=== PATIENT | female | born 1955 | race Caucasian/White ===

== ENCOUNTER → 2024-12-08 10:00 | Outpatient (BNVA) | payer OTHER, SELFPAY | PROVIDERS: Visit Provider Podiatrist Foot & Ankle Surgery | DX: M79.672 Pain in left foot (principal); M20.12 Hallux valgus (acquired), left foot; M20.42 Other hammer toe(s) (acquired), left foot | CPT/HCPCS: 73630; 99203 ==

== ENCOUNTER → 2025-03-10 13:13 | Outpatient (BNVA) | payer OTHER, SELFPAY | PROVIDERS: PCP Nurse Practitioner; Visit Provider Internal Medicine | DX: I10 Essential (primary) hypertension (principal); Z01.811 Encounter for preprocedural respiratory examination; R07.9 Chest pain, unspecified; Z79.82 Long term (current) use of aspirin; Z87.891 Personal history of nicotine dependence | CPT/HCPCS: 93005; 99204 ==

== ENCOUNTER → 2025-03-16 09:08 | Outpatient (BNVA) | payer OTHER, SELFPAY | PROVIDERS: PCP Nurse Practitioner; Visit Provider Podiatrist Foot & Ankle Surgery | DX: M20.12 Hallux valgus (acquired), left foot (principal); L90.9 Atrophic disorder of skin, unspecified; M20.41 Other hammer toe(s) (acquired), right foot | CPT/HCPCS: 99214 ==

== ENCOUNTER 2025-04-15 10:35 | Outpatient (CLI) | payer OTHER, SELFPAY ==
--- NOTE | 2025-04-15 11:15 | USCV_ITS ---
Heather Contreras (Venkat) Age: 69 Gender: F : 1955 Exam Date: 04/15/2025 11:37 Ordering Phys: Alexsander Mendez M.D ([email or web address]) Technologist: Gerry Saleem Exam Location: [facility] – [place] Indication: chest pain, sob BP: 118 / 80 HR: 60 Rhythm: Sinus Technical Quality: Adequate MEASUREMENTS (Male / Female) Normal Values 2D ECHO LV Diastolic Diameter PLAX 4.9 cm 4.2 - 5.9 / 3.9 - 5.3 cm IVS Diastolic Thickness 1.2 cm 0.6 - 1.0 / 0.6 - 0.9 cm IVS Systolic Thickness 1.2 cm LVPW Diastolic Thickness 1.6 cm 0.6 - 1.0 / 0.6 - 0.9 cm LVPW Systolic Thickness 2.0 cm LVOT Diameter 2.0 cm LV Ejection Fraction 2D Teich 57.0 % LV Ejection Fraction MOD 4C 63.0 % LV Ejection Fraction MOD 2C 65.1 % LV Ejection Fraction 2C AL 65.5 % LA Diameter 4.0 cm RA Systolic Volume 4C AL 33.9 ml RA Systolic Volume 4C MOD 33.8 ml LA Sys Volume AL 37.4 cm cubed LA Sys Volume Index AL 17.9 cm cubed/m squared Aorta at Sinotubular Diameter 2.5 cm IVC Diameter 1.9 cm M-MODE LA Ao Ratio MM 1.7 AV Cusp Separation MM 1.7 cm DOPPLER AV Peak Velocity 139.0 cm/s LVOT Peak Velocity 86.0 cm/s AV Area Cont Eq vti 1.8 cm squared AV Area Cont Eq pk 2.0 cm squared MV Peak Velocity 89.0 cm/s MV Area PHT 4.4 cm squared Mitral E to A Ratio 0.7 TR Peak Velocity 288.0 cm/s TR Peak Gradient 33.2 mmHg TR Mean Velocity 210.0 cm/s TR Mean Gradient 20.9 mmHg TR Velocity Time Integral 80.6 cm PV Peak Velocity 88.7 cm/s RV Ejection Time 0.3 s FINDINGS Left Ventricle Left ventricle is normal in size. LV systolic function is normal with EF of 60-65%. No regional wall motion abnormalities are seen. Grade 1 diastolic dysfunction Right Ventricle Normal in size and function Right Atrium Normal in size Left Atrium Normal in size Mitral Valve Structurally normal mitral valve. Trace mitral regurgitation. Aortic Valve Structurally normal aortic valve. No significant stenosis regurgitation. Tricuspid Valve Insufficient TR jet to evaluate RVSP. Pulmonic Valve Not well visualized Pericardium Normal Aorta Normal in size IVC Appears to be normal CONCLUSIONS LV systolic function is normal with EF of 60-65% Grade 1 diastolic dysfunction Trace mitral regurgitation Alexsander Mendez MD (Electronically Signed) Final Date: 28 April 2025 12:51 S
== END 2025-04-15 10:36 | disposition home or self-care (01) ==
LOC: RAD 10:36
PROVIDERS: PCP Nurse Practitioner; Visit Provider Internal Medicine
DX: R07.9 Chest pain, unspecified (principal); R06.02 Shortness of breath; R93.1 Abnormal findings on diagnostic imaging of heart and coronary circulation
CPT/HCPCS: 93306

== ENCOUNTER 2025-09-02 14:03 | Outpatient (CLI) | payer OTHER, SELFPAY ==
--- NOTE | 2025-09-02 14:10 | MM_ITS ---
WS: [id number] BILATERAL 3D TOMOSYNTHESIS DIGITAL SCREENING MAMMOGRAPHY WITH CAD CLINICAL INFORMATION: SCREENING HISTORY: Screening mammogram. RIGHT breast pain COMPARISON: Outside study 2023 TECHNIQUE: Bilateral CC and MLO views. FINDINGS: Scattered fibroglandular densities bilaterally. No suspicious focal mass, asymmetry, calcifications, or architectural distortion. No evidence of malignancy. MM/MM scr BI tomosynthesis [id number] IMPRESSION: DENSITY: There are scattered areas of fibroglandular density. BI-RADS: 2 - Benign. FOLLOW UP: 1 Year Follow-up Recommend return to annual screening mammography.
== END 2025-09-02 14:04 | disposition home or self-care (01) ==
LOC: RAD 14:04
PROVIDERS: PCP Nurse Practitioner; Visit Provider Nurse Practitioner
DX: Z12.31 Encounter for screening mammogram for malignant neoplasm of breast (principal); R92.323 Mammographic fibroglandular density, bilateral breasts
CPT/HCPCS: 77063; 77067

== ENCOUNTER → 2025-09-06 09:20 | Outpatient (BNVA) | payer OTHER, SELFPAY | PROVIDERS: PCP Nurse Practitioner; Visit Provider Dermatology | DX: L82.1 Other seborrheic keratosis (principal); D23.39 Other benign neoplasm of skin of other parts of face; L57.3 Poikiloderma of Civatte; L57.8 Other skin changes due to chronic exposure to nonionizing radiation | CPT/HCPCS: 99203 ==

== ENCOUNTER → 2025-09-07 10:43 | Outpatient (BNVA) | payer OTHER, SELFPAY | PROVIDERS: PCP Nurse Practitioner; Visit Provider Podiatrist Foot & Ankle Surgery | DX: M20.12 Hallux valgus (acquired), left foot (principal); L90.9 Atrophic disorder of skin, unspecified; M20.42 Other hammer toe(s) (acquired), left foot | CPT/HCPCS: 99214 ==

== ENCOUNTER → 2025-10-26 09:56 | Outpatient (BNVA) | payer OTHER, SELFPAY | PROVIDERS: PCP Nurse Practitioner; Visit Provider Nurse Practitioner Family | DX: R07.9 Chest pain, unspecified (principal) | CPT/HCPCS: 93005; 99214 ==

== ENCOUNTER → 2025-10-26 10:48 | Outpatient (BNVA) | payer OTHER, SELFPAY | PROVIDERS: PCP Nurse Practitioner; Visit Provider Podiatrist Foot & Ankle Surgery | DX: M20.12 Hallux valgus (acquired), left foot (principal); L90.9 Atrophic disorder of skin, unspecified; M20.42 Other hammer toe(s) (acquired), left foot | CPT/HCPCS: 99214 ==

== ENCOUNTER 2025-11-14 08:29 | Day surgery (SDC) | payer OTHER, SELFPAY ==
[2025-11-14] VITALS (9 sets, daily range): BP systolic 104–166; BP diastolic 54–90; PULSE 63–73; RESP 16–17; TEMP 36.2–36.3; O2SAT 91–97; BMI 33.7
--- NOTE | 2025-11-14 09:27 | ANES.PREANE2 ---
Pre-Anesthetic Assessment Height/Weight: Height 5 ft 4 in Weight 197 lb Temp Pulse Resp BP Pulse Ox O2 Del Method 97.2 F L 63 17 126/73 97 Room Air 11/14/25 08:54 11/14/25 08:54 11/14/25 08:54 11/14/25 08:54 11/14/25 08:54 11/14/25 08:56 Preop Diagnosis: Left hallux valgus, 2nd hammertoe Operation Date: 11/14/25 10:15 Proposed Procedures p Hardware Removal Ankle/Foot Foot Hardware Removal(Left) - Gilberto Moore DPM s hallux jatin osteotomy(Left) - Gilberto Moore DPM s 2nd metatarsal deborah osteotomy(Left) - Gilberto Moore DPM s 2nd toe proximal interphalangeal joint arthrodesis,(Left) - Gilberto Moore DPM s 2nd toe flexor digitorum longus to extensor digitorum longus tendon transfer(Left) - Gilberto Moore DPM s Bunionectomy Lapidus(Left) - Gilberto Moore DPM Was Beta Cholo taken within 24 hours: Yes Was Clonidine taken within 24 hours: N/A Last intake: Intake Last Liquid Date 11/13/25 Last Liquid Time 20:30 Last Solid Date 11/13/25 Last Solid Time 19:00 Social No alcohol and No tobacco Exam alert, oriented x 3, clear to auscultation bilaterally and regular rate & rhythm Airway Submandibular: within normal limits Cervical ROM: within normal limits Mallampati: Class I Comments: Comments: Edentulous Anesthetic Plan ASA status: 2 Anesthesia: MAC Other: No prior issues with anesthesia NPO since yesterday evening History of hypertension on carvedilol Hypothyroidism on Synthroid EKG sinus rhythm Patient still cuts all of her own wood at home, very active at baseline Patient states that she has a very high pain tolerance, did not take any pain meds after her total joint procedures Plan for MAC anesthesia with local via surgeon Medications/Allergies Home Medications ?Medication ?Instructions ?Recorded ?Confirmed ?Last Taken ?Type aspirin 81 mg tablet,delayed 81 mg PO DAILY 12/08/24 11/10/25 11/10/25 History release (Adult Low Dose Aspirin) carvedilol 12.5 mg tablet 12.5 mg PO BID 12/08/24 11/14/25 11/14/25 History cholecalciferol (vitamin D3) 25 25 mcg PO DAILY 12/08/24 11/10/25 11/10/25 History mcg (1,000 unit) capsule dextromethorphan 20 mg-quinidine 1 cap PO Q12H 12/08/24 11/14/25 11/14/25 History 10 mg capsule magnesium carb,citrate,oxide PO 12/08/24 10/26/25 11/10/25 History mecobalamin (vitamin B12) PO 12/08/24 10/26/25 11/10/25 History orthopedic shoes with extra depth #1 ea 12/08/24 10/26/25 Unknown Rx insole levothyroxine 75 mcg capsule 75 mcg PO DAILY 03/10/25 11/14/25 11/14/25 History polyethylene glycol 3350 17 4 g PO DAILY 03/10/25 11/10/25 11/10/25 History gram/dose oral powder rosuvastatin 40 mg tablet 40 mg PO DAILY 03/10/25 11/10/25 11/09/25 History fexofenadine 180 mg tablet 180 mg PO DAILY 11/10/25 11/10/25 11/10/25 History Allergies Allergy/AdvReac Type Severity Reaction Status Date / Time onion Allergy Severe ALGY-Swell Verified 11/14/25 08:47 Lip/Tongue/Throat Sulfa (Sulfonamide Allergy Intermediate rash Verified 11/14/25 08:47 Antibiotics) Current Medications Generic Name Dose Route Start Last Admin Trade Name Freq PRN Reason Stop Dose Admin Sodium Chloride 1,000 mls @ 30 mls/hr 11/14/25 08:45 11/14/25 09:15 Sodium Chloride 0.9% IV 11/15/25 08:44 30 mls/hr .Q24H JUDY Administration PFSH Anesthesia Family History Mother Congestive heart failure (CHF) Father Heart attack Brother H/O heart bypass surgery Brother Stroke Brother Cancer Social History Smoking and tobacco/nicotine status: unknown if used tobacco/nicotine Data Anesthesia Cardiac Studies: Echocardiogram 04/15/25
--- NOTE | 2025-11-14 09:48 | W.PM.OPSUD ---
Surgery/Procedure H&P Update DATE OF PROCEDURE: November 14, 2025 DATE H&P PERFORMED: 10/26/25 H&P UPDATE INFORMATION: I have reviewed H&P completed within last 30 days, I have examined patient prior to procedure, No changes to prior documentation, H&P is in [facility] EMR on date indicated and Risks and benefits of the procedure reviewed PREOP DIAGNOSIS: Left hallux valgus, 2nd hammertoe PLANNED PROCEDURE: Operation Date: 11/14/25 10:15 Proposed Procedures p Hardware Removal Ankle/Foot Foot Hardware Removal(Left) - ASHLEE Ernandez hallux jatin osteotomy(Left) - ASHLEE Ernandez 2nd metatarsal deborah osteotomy(Left) - ASHLEE Ernandez 2nd toe proximal interphalangeal joint arthrodesis,(Left) - ASHLEE Ernandez 2nd toe flexor digitorum longus to extensor digitorum longus tendon transfer(Left) - ASHLEE Ernandez Bunionectomy Lapidus(Left) - Gilberto Moore DPM
[2025-11-14] MEDS: ceFAZolin 2,000 mg SDV 2000 MG IVP (10:00)
[2025-11-14] MEDS: BUPivacaine 0.5% INJ 30 mL XX (10:31)
--- NOTE | 2025-11-14 11:30 | P.BOP_ITS ---
Date of procedure: 11/14/2025 Surgeon name: Anita DelgadoPJacklyn Nanotechnology Engineering Technician(s) name(s): Rancho Procedure(s) performed: Left foot hardware removal, Fallon osteotomy, Krishan osteotomy, PIPJ arthrodesis second digit, FDL to EDL tendon transfer Description of findings: Hallux valgus, hammertoe Estimated blood loss: 5 cc Tourniquet time: 68 minutes Specimen(s) removed: Hardware Post-operative diagnosis: Hallux valgus, hammertoe
--- NOTE | 2025-11-14 11:31 | PM.OP ---
Operative Report Date of procedure: November 14, 2025 Surgeon: Gilberto Moore DPM Procedure: Date of procedure: 11/14/2025 Pre-op diagnosis: Painful orthopedic hardware left foot, hallux valgus, metatarsalgia, hammertoe second toe Post-op diagnosis: Same Post-op findings: Hallux valgus, hammertoe second digit Procedure done: 1. Left foot hardware removal CPT 86472 2. Left foot Patterson osteotomy CPT 66573 3. Left foot second metatarsal Krishan osteotomy CPT 86541 4. Left foot second digit PIPJ arthrodesis CPT 36497 5. Left foot second digit flexor digitorum longus to extensor digitorum longus tendon transfer CPT 97199 Implants: Micro FT screw x 2 from [employer] Specimens removed: None Surgeon: Dr. Gilberto Moore DPM Petrophysicist: Rancho Estimated blood loss: 5 cc Tourniquet time: 68-minute Complications: None Patient is a 70-year-old female that has a history of painful left foot hallux valgus, painful hardware, hammertoe deformity and metatarsalgia. The patient has had the aforementioned chief complaint for some time. Conservative treatment measures have been attempted and the patient has opted for surgical intervention at this time. A lengthy discussion regarding the procedure, including risks and complications has been had with the patient and is noted in the recent clinic note. Written and verbal consent have been obtained. All patient questions have been answered to the patient?s satisfaction. No written or verbal guarantees have been given or implied. The patient has been NPO since midnight. The history has been reviewed and the history and physical is current. The signed consent was confirmed and placed in the patient chart. Patient imaging has been reviewed and is consistent with the diagnosis. Under mild sedation, the patient was brought into the operating room and placed on the table in the supine position. IV antibiotics were given by the anesthesia team as preoperative surgical prophylaxis. IV sedation was then performed by the anesthesiateam. A pneumatic tourniquet was then placed about the left ankle. The operative extremity was then prepped and draped in the usual fashion. The extremity was then elevated and exsanguinated before the tourniquet was inflated to 250 mmHg. After inflation, the following procedure was then performed. Attention was directed to the left foot where a 6 Demeter incision was made overlying the first metatarsophalangeal joint with a #15 blade. Dissection was carried down to the level of the first metatarsal phalangeal joint capsule which was incised to expose the underlying first metatarsal phalangeal joint hardware. This was removed without incident and passed in the operative field. Removal of hardware was confirmed on C-arm imaging. Next, attention was directed to the proximal phalanx where sagittal bone saw was used to make an Nicki osteotomy. This corrected the hallux valgus deformity. A 2.5 mm fully threaded compression screw from [employer] was inserted across the osteotomy site. Good compression and positioning was noted. Next, attention was directed to the adjacent second digit where a 4.5 cm incision was made using a #15 blade. Dissection was carried down to the level of the extensor tendon which was transected transversely at the level of the proximal interphalangeal joint. Dissection was carried out to the plantar aspect of the proximal interphalangeal joint to expose the underlying flexor tendon. Sagittal bone saw was used to remove the head of the proximal phalanx and base of the intermediate phalanx. Long extensor tendon was then identified, isolated and transected as far distally as possible before being split longitudinally and wraparound to the dorsal aspect of the proximal phalanx for tendon transfer. Guidewire was driven through the base of the intermediate phalanx at the distal aspect of the toe before being driven retrograde fashion back into the proximal phalanx. Good positioning of the digit was noted. The ends of the flexor tendon were then reapproximated on the dorsal aspect of the proximal phalanx using 2-0 Ethibond before being sutured into the long extensor during repair of the extensor tendon. A 2.0 fully threaded compression screw from [employer] was then driven over the wire across the proximal phalangeal joint in retrograde fashion. Good positioning of the screw was noted clinically as well as on C-arm imaging. A percutaneous stab incision was then made at the level of the second metatarsal head before MIS bur was inserted to perform a Krishan osteotomy in standard fashion. The position of the second metatarsal head was noted on fluoroscopy. All incisions were then irrigated with copious months sterile saline before closure. Deep tissue was closed with 3-0 Vicryl followed by subcuticular closure with 4-0 Vicryl and skin closure with 4-0 nylon. Incisions were dressed with Xeroform, 4 x 4 gauze, Kerlix, Carroll bandage. The patient tolerated the procedure and anesthesia well and without complication. The patient was transported from the operating room to the recovery room with vital signs stable and vascular status intact to all digits of the Left foot. The patient was given both written and verbal instructions to remain weightbearing as tolerated in cam boot to the operative extremity, to keep dressings/splint clean, dry and intact and to take pain medication as directed. The patient will follow-up in the outpatient setting at their scheduled appointment. The patient was discharged with my personal number and was instructed to call if any questions or issues should arise. They were discharged home once anesthesia criteria was met.
--- NOTE | 2025-11-14 12:47 | ANE.PACU2 ---
Inpatient post-anesthesia follow up: Airway intact: Yes Vital signs: Temperature 97.4 F Pulse Rate 69 Respiratory Rate 17 Blood Pressure 120/78 Pulse Oximetry 94 Oxygen Delivery Me thod Room Air Oxygen Flow Rate Fraction of Inspir ed Oxygen Hydration adequate: Yes Nausea and vomiting: No Pain level: 1 Mental status: Baseline
== END 2025-11-14 12:47 | disposition home or self-care (01) ==
PROVIDERS: PCP Nurse Practitioner; Visit Provider Podiatrist Foot & Ankle Surgery
PROC: (CPT 27690; principal; 2025-11-14 10:05)
PROC: (CPT 28298; 2025-11-14 10:05)
PROC: (CPT 28308; 2025-11-14 10:05)
PROC: (CPT 27690; 2025-11-14 10:05)
PROC: (CPT 27690; 2025-11-14 10:05)
PROC: (CPT 28297; 2025-11-14 10:05)
DX: T84.84XA Pain due to internal orthopedic prosthetic devices, implants and grafts, initial encounter (principal); Y70.2 Prosthetic and other implants, materials and accessory anesthesiology devices associated with adverse incidents; M20.12 Hallux valgus (acquired), left foot; M20.42 Other hammer toe(s) (acquired), left foot; I10 Essential (primary) hypertension; E03.9 Hypothyroidism, unspecified; Z79.82 Long term (current) use of aspirin; Z82.49 Family history of ischemic heart disease and other diseases of the circulatory system; Z80.9 Family history of malignant neoplasm, unspecified; Z87.891 Personal history of nicotine dependence
CPT/HCPCS: 27690; 20680; 28308; 28285; 28310; 76000; C1713; J0690; J2704; J3010; J3490; J7030; J9999

== ENCOUNTER → 2025-11-15 09:41 | Outpatient (BNVA) | payer OTHER, SELFPAY | PROVIDERS: PCP Nurse Practitioner; Visit Provider Podiatrist Foot & Ankle Surgery | DX: Z98.890 Other specified postprocedural states (principal); Z01.818 Encounter for other preprocedural examination; M79.673 Pain in unspecified foot; M20.12 Hallux valgus (acquired), left foot; M20.40 Other hammer toe(s) (acquired), unspecified foot; L90.9 Atrophic disorder of skin, unspecified | CPT/HCPCS: 99024 ==